=== PATIENT | female | born 1980 | race Asian ===

== ENCOUNTER 2018-05-22 08:27 | Inpatient (IN) | payer MEDICAID ==
[~2018-05-22] VITALS: Ht 139.7 cm; Wt 37.6 kg
[2018-05-22 09:02] LABS: AMPHET/METH SCREEN,URINE NEGATIVE (NEGATIVE); BARBITURATE SCREEN, URINE NEGATIVE (NEGATIVE); BENZODIAZEPINES SCREEN,URINE NEGATIVE (NEGATIVE); CANNABINOID SCREEN,URINE NEGATIVE (NEGATIVE); COCAINE SCREEN,URINE NEGATIVE (NEGATIVE); METHADONE SCREEN, URINE NEGATIVE (NEGATIVE); OPIATE SCREEN,URINE NEGATIVE (NEGATIVE)
[2018-05-22 09:03] LABS: PHENCYCLIDINE SCREEN,URINE NEGATIVE (NEGATIVE)
[2018-05-22 09:05] LABS: BASOPHILS % (AUTO) 1.3 % (0.0-2.0); EOSINOPHILS % (AUTO) 0.1 % (1.0-6.0); HEMATOCRIT 26.2 % (36-46); HEMOGLOBIN 8.7 g/dL (12.0-16.0); LYMPHOCYTES # (AUTO) 0.7 K/uL (1.0-4.8); LYMPHOCYTES % (AUTO) 16.6 % (22.0-44.0); MEAN CORPUSCULAR HEMOGLOBIN 26.5 pg (26.0-34.0); MEAN CORPUSCULAR HGB CONC 33.2 G/dL (31.0-37.0); MEAN CORPUSCULAR VOLUME 80 fL (80-100); MONOCYTES # (AUTO) 0.2 K/uL (0.1-1.0); NEUTROPHILS # (AUTO) 3.1 K/uL (1.8-7.7); PLATELET COUNT (AUTO) 496 K/uL (150-450); RED BLOOD CELL COUNT(AUTO) 3.29 MIL/uL (4.00-5.20); RED CELL DISTRIBUTION WIDTH 18.9 % (11.5-14.5)
[2018-05-22 09:13] LABS: ANION GAP 6 mmol/L (8-16); CALCIUM, TOTAL 8.7 mg/dL (8.8-10.5); CARBON DIOXIDE 27 mmol/L (22-29); CHLORIDE 101 mmol/L (98-107); CREATININE 0.63 mg/dL (0.60-1.30); GLOMERULAR FILTR. RATE CALC > 60 mL/min (>60); GLUCOSE,RANDOM 104 mg/dL (70-110); POTASSIUM 3.8 mmol/L (3.5-5.1); SODIUM SERUM 134 mmol/L (136-145); UREA NITROGEN, BLOOD 5 mg/dL (7-18)
[2018-05-22 09:27] LABS: ALANINE AMINOTRANSFERASE 20 U/L (12-78); ALKALINE PHOSPHATASE 52 U/L (46-116); ASPARTATE AMINOTRANSFERASE 19 U/L (15-37); BILIRUBIN,TOTAL 0.6 mg/dL (0.1-1.0); HCG,QUANTITATIVE < 1 mIU/mL (0-6); TOTAL PROTEIN, SERUM 7.4 g/dL (6.4-8.2)
[2018-05-22] MEDS ORDERED: ZOLPIDEM TARTRATE 10 MG TABLET PO PRN (10:30)
[2018-05-22] MEDS ORDERED: LORazepam 2 MG TABLET PO PRN (10:30)
[2018-05-22] MEDS ORDERED: HALOPERIDOL 5 MG TABLET PO PRN (10:30)
[2018-05-22 10:54] LABS: CHOL/HDL RATIO 1.9 (3.9-5.7); CHOLESTEROL 167 mg/dL (131-200); HDL CHOLESTEROL 87 mg/dL (40-60); LDL CHOL (CALC.) 72 mg/dL (0-130); TRIGLYCERIDES 38 mg/dL (15-150)
[2018-05-22 12:11] LABS: % IRON SATURATION 3.1 % (22-44); IRON, SERUM 13 mcg/dL (50-175); TOTAL IRON BINDING CAPACITY 417 mcg/dL (250-450)
[2018-05-22 20:36] VITALS: BP 116/77
[2018-05-23 03:44] VITALS: BP 117/83
[2018-05-23 08:21] VITALS: BP 111/72
[2018-05-23] MEDS ORDERED: LOPERAMIDE HCL 2 MG CAPSULE PO PRN (08:45)
[2018-05-23] MEDS ORDERED: PETROLATUM,WHITE 71 GM JELLY TP PRN (08:45)
[2018-05-23] MEDS ORDERED: ONDANSETRON HCL 4 MG TABLET PO PRN (08:45)
[2018-05-23] MEDS ORDERED: DOCUSATE SODIUM 100 MG CAPSULE PO PRN (08:45)
[2018-05-23] MEDS ORDERED: ACETAMINOPHEN 325 MG TABLET PO PRN (08:45)
[2018-05-23] MEDS ORDERED: GuaiFENesin/D-METHORPHAN [SUGAR-FREE] 200-20MG/10 ML SYRUP UDCUP PO PRN (08:45)
[2018-05-23] MEDS ORDERED: NICOTINE 14 MG/24 HOUR PATCH TD PRN (08:45)
[2018-05-23] MEDS ORDERED: ALBUTEROL SULFATE HFA 90 MCG/PUFF 8 GM INHALER IH PRN (08:45)
[2018-05-23] MEDS ORDERED: CloNIDine HCL 0.1 MG TABLET PO PRN (08:45)
[2018-05-23] MEDS ORDERED: MAG HYDROX/AL HYDROX/SIMETH ES 30 ML SUSPENSION UDCUP PO PRN (08:45)
[2018-05-23] MEDS ORDERED: MAGNESIUM HYDROXIDE SUSPENSION 30 ML UDCUP PO PRN (08:45)
[2018-05-23] MEDS ORDERED: IBUPROFEN 400 MG TABLET PO PRN (08:45)
[2018-05-23] MEDS ORDERED: ZOLPIDEM TARTRATE 5 MG TABLET PO PRN (10:15)
[2018-05-23] MEDS: FERROUS SULFATE 325 MG EC TABLET PO SCH ×2 (11:48→16:55)
[2018-05-23 16:38] VITALS: BP 124/78
[2018-05-23 17:50] VITALS: BP 109/89
[2018-05-23 18:56] VITALS: BP 124/96
[2018-05-23] MEDS: RisperiDONE 1 MG TABLET PO SCH (21:00)
[2018-05-23] MEDS: LORazepam 1 MG TABLET PO PRN (23:09)
[2018-05-23] MEDS: HALOPERIDOL 5 MG TABLET PO PRN (23:09)
[2018-05-24 00:46] VITALS: BP 111/72
[2018-05-24 04:30] VITALS: BP 121/88
[2018-05-24] MEDS: HALOPERIDOL 5 MG TABLET PO PRN (04:37)
[2018-05-24] MEDS: LORazepam 1 MG TABLET PO PRN ×2 (04:37→20:40)
[2018-05-24] MEDS: FERROUS SULFATE 325 MG EC TABLET PO SCH ×3 (07:01→16:17)
[2018-05-24 08:28] LABS: BASOPHILS % (AUTO) 1.8 % (0.0-2.0); EOSINOPHILS % (AUTO) 0.6 % (1.0-6.0); HEMATOCRIT 23.1 % (36-46); HEMOGLOBIN 7.7 g/dL (12.0-16.0); LYMPHOCYTES # (AUTO) 1.5 K/uL (1.0-4.8); LYMPHOCYTES % (AUTO) 27.2 % (22.0-44.0); MEAN CORPUSCULAR HEMOGLOBIN 26.2 pg (26.0-34.0); MEAN CORPUSCULAR HGB CONC 33.4 G/dL (31.0-37.0); MEAN CORPUSCULAR VOLUME 79 fL (80-100); MONOCYTES # (AUTO) 0.7 K/uL (0.1-1.0); MONOCYTES % (AUTO) 11.6 % (2.0-9.0); NEUTROPHILS # (AUTO) 3.3 K/uL (1.8-7.7); NEUTROPHILS % (AUTO) 58.8 % (40.0-70.0); PLATELET COUNT (AUTO) 476 K/uL (150-450); RED BLOOD CELL COUNT(AUTO) 2.93 MIL/uL (4.00-5.20); RED CELL DISTRIBUTION WIDTH 18.3 % (11.5-14.5)
[2018-05-24 08:29] VITALS: BP 115/74
[2018-05-24 08:51] LABS: ALANINE AMINOTRANSFERASE 17 U/L (12-78); ALBUMIN 3.3 g/dL (3.4-5.0); ALKALINE PHOSPHATASE 44 U/L (46-116); ANION GAP 5 mmol/L (8-16); ASPARTATE AMINOTRANSFERASE 15 U/L (15-37); BILIRUBIN,TOTAL 0.4 mg/dL (0.1-1.0); CALCIUM, TOTAL 8.7 mg/dL (8.8-10.5); CARBON DIOXIDE 29 mmol/L (22-29); CHLORIDE 107 mmol/L (98-107); CHOLESTEROL 155 mg/dL (131-200); CREATININE 0.66 mg/dL (0.60-1.30); GLOMERULAR FILTR. RATE CALC > 60 mL/min (>60); GLUCOSE,RANDOM 83 mg/dL (70-110); HDL CHOLESTEROL 77 mg/dL (40-60); LDL CHOL (CALC.) 71 mg/dL (0-130); POTASSIUM 3.4 mmol/L (3.5-5.1); SODIUM SERUM 141 mmol/L (136-145); THYROID STIMULATING HORMONE 1.18 uIU/mL (0.36-3.74); TOTAL PROTEIN, SERUM 6.4 g/dL (6.4-8.2); TRIGLYCERIDES 35 mg/dL (15-150)
[2018-05-24 08:57] LABS: UREA NITROGEN, BLOOD 9 mg/dL (7-18)
[2018-05-24 09:01] LABS: HEMOGLOBIN A1C 4.6 % (4.5-6.2)
[2018-05-24] MEDS ORDERED: POTASSIUM CHLORIDE 20 MEQ ER TABLET PO ONE (10:15)
[2018-05-24 16:44] VITALS: BP 120/80
[2018-05-24] MEDS: RisperiDONE 1 MG TABLET PO SCH (20:13)
[2018-05-25 05:15] VITALS: BP 116/78
[2018-05-25] MEDS: FERROUS SULFATE 325 MG EC TABLET PO SCH ×3 (06:38→18:53)
[2018-05-25 08:19] VITALS: BP 95/53
[2018-05-25] MEDS ORDERED: POTASSIUM CHLORIDE 20 MEQ ER TABLET PO ONE (12:15)
[2018-05-25 16:35] VITALS: BP 90/61
[2018-05-25] MEDS: RisperiDONE 2 MG TABLET PO SCH (20:21)
[2018-05-26 06:45] VITALS: BP 112/71
[2018-05-26] MEDS: FERROUS SULFATE 325 MG EC TABLET PO SCH ×3 (07:04→17:02)
[2018-05-26 08:15] VITALS: BP 113/60
[2018-05-26 08:15] LABS: BASOPHILS % (AUTO) 1.2 % (0.0-2.0); HEMOGLOBIN 7.3 g/dL (12.0-16.0); LYMPHOCYTES # (AUTO) 1.7 K/uL (1.0-4.8); LYMPHOCYTES % (AUTO) 34.8 % (22.0-44.0); MEAN CORPUSCULAR HEMOGLOBIN 25.6 pg (26.0-34.0); MEAN CORPUSCULAR HGB CONC 31.7 G/dL (31.0-37.0); MEAN CORPUSCULAR VOLUME 81 fL (80-100); MONOCYTES # (AUTO) 0.5 K/uL (0.1-1.0); MONOCYTES % (AUTO) 10.6 % (2.0-9.0); NEUTROPHILS # (AUTO) 2.4 K/uL (1.8-7.7); NEUTROPHILS % (AUTO) 50.4 % (40.0-70.0); PLATELET COUNT (AUTO) 462 K/uL (150-450); RED BLOOD CELL COUNT(AUTO) 2.86 MIL/uL (4.00-5.20); RED CELL DISTRIBUTION WIDTH 18.7 % (11.5-14.5)
[2018-05-26] MEDS: FOLIC ACID 1 MG TABLET PO SCH (10:03)
[2018-05-26] MEDS: LORazepam 1 MG TABLET PO PRN (11:16)
[2018-05-26 17:22] VITALS: BP 123/63
[2018-05-26] MEDS: RisperiDONE 2 MG TABLET PO SCH (20:26)
[2018-05-27 05:34] VITALS: BP 104/66
[2018-05-27] MEDS: FERROUS SULFATE 325 MG EC TABLET PO SCH ×3 (07:04→16:38)
[2018-05-27] MEDS: FOLIC ACID 1 MG TABLET PO SCH (08:12)
[2018-05-27 13:03] VITALS: BP 105/76
[2018-05-27] MEDS: LORazepam 1 MG TABLET PO PRN (13:59)
[2018-05-27 16:08] VITALS: BP 111/68
[2018-05-27] MEDS: RisperiDONE 2 MG TABLET PO SCH (20:27)
[2018-05-28 05:08] VITALS: BP 110/70
[2018-05-28] MEDS: FERROUS SULFATE 325 MG EC TABLET PO SCH ×3 (07:07→16:22)
[2018-05-28 08:14] VITALS: BP 105/67
[2018-05-28] MEDS: FOLIC ACID 1 MG TABLET PO SCH (08:57)
[2018-05-28] MEDS: LORazepam 1 MG TABLET PO PRN (13:04)
[2018-05-28 16:10] VITALS: BP 105/65
[2018-05-28] MEDS: RisperiDONE 2 MG TABLET PO SCH (20:12)
[2018-05-29 00:43] VITALS: BP 109/62
[2018-05-29] MEDS: FERROUS SULFATE 325 MG EC TABLET PO SCH (06:43)
[2018-05-29 08:23] VITALS: BP 111/59
[2018-05-29] MEDS ORDERED: RISP2 PO (09:42)
[2018-05-29] MEDS ORDERED: FERR-89 PO (09:44)
[2018-05-29] MEDS ORDERED: FOLI1 PO (09:44)
[2018-05-29] MEDS: FOLIC ACID 1 MG TABLET PO SCH (09:58)
== END 2018-05-29 12:15 | disposition home or self-care (01) | DRG 750 ==
LOC: EMS 08:29 → B2S 14:59
DX: F20.0 Paranoid schizophrenia (principal); E87.1 Hypo-osmolality and hyponatremia; D50.9 Iron deficiency anemia, unspecified; D72.819 Decreased white blood cell count, unspecified; E87.6 Hypokalemia; Z79.899 Other long term (current) drug therapy; H11.33 Conjunctival hemorrhage, bilateral
CPT/HCPCS: 83036; 83540; 83550; 84132; 84443; G0480

== ENCOUNTER 2018-05-23 19:27 | Emergency (ER) | payer MEDICAID ==
[~2018-05-23] VITALS: Ht 139.7 cm; Wt 38.2 kg
[2018-05-23 19:31] VITALS: BP 119/82
== END 2018-05-23 22:46 | disposition home or self-care (01) ==
LOC: EMS 19:28
DX: H92.21 Otorrhagia, right ear (principal); H11.32 Conjunctival hemorrhage, left eye; X83.8XXA Intentional self-harm by other specified means, initial encounter; Y93.89 Activity, other specified; Y92.89 Other specified places as the place of occurrence of the external cause; Y99.8 Other external cause status